=== PATIENT | male | born 1965 | race Caucasian/White ===

== ENCOUNTER 2020-08-14 12:41 | Emergency (ER) | payer MEDICAID, OTHER ==
[~2020-08-14] VITALS: Ht 182.9 cm; Wt 81.6 kg
[2020-08-14 12:49] VITALS: BP 138/80
[2020-08-14] MEDS ORDERED: IBUPROFEN 800 MG TAB PO ONE (13:45)
== END 2020-08-14 14:36 | disposition home or self-care (01) ==
LOC: EDBD 12:41 → ER 12:41
DX: M54.5 Low back pain (principal); G89.29 Other chronic pain
CPT/HCPCS: 81002

== ENCOUNTER 2020-09-13 14:21 | Emergency (ER) | payer MEDICAID ==
[~2020-09-13] VITALS: Ht 185.4 cm; Wt 81.6 kg
[2020-09-13] MEDS ORDERED: SODIUM CHLORIDE 0.9% 1,000 ML IV ONE (14:45)
[2020-09-13 14:57] LABS: Basophils # (auto) 0 10 ^3/uL (0-0.2); Basophils % (auto) 0.6 % (0.0-2.0); Eosinophils # (auto) 0.2 10 ^3/uL (0-0.8); Eosinophils % (auto) 2.2 % (0.0-7.0); Hemoglobin 13.3 g/dL (13.5-17.5); Lymphocytes # (auto) 2.8 10 ^3/uL (0.4-5.4); Lymphocytes % (auto) 35.6 % (10.0-50.0); Mean Corpuscular Hemoglobin 31.9 pg (28.0-32.0); Mean Corpuscular Hgb Conc. 35.1 g/dL (32.0-36.0); Mean Corpuscular Volume 90.9 fL (80.0-100.0); Monocytes # (auto) 0.5 10 ^3/uL (0-1.3); Monocytes % (auto) 6.8 % (0.0-12.0); Neutrophils # (auto) 4.3 10 ^3/uL (1.6-8.6); Neutrophils % (auto) 54.8 % (37.0-80.0); Nucleated Red Blood Cells % 0.1 %; Platelet Count (auto) 334 10^3/uL (140-450); Red Blood Cells 4.18 10^6/uL (4.5-5.90); Red Cell Distribution Width 14.5 % (11.8-14.3); White Blood Cell 7.8 10^3/uL (4.4-10.8)
[2020-09-13 15:15] LABS: Albumin 3.5 g/dL (3.4-5.0); Calcium 8.9 mg/dL (8.5-10.1)
[2020-09-13 15:18] LABS: Bilirubin, Total 0.7 mg/dL (0.2-1.0); Total Protein 7.5 g/dL (6.4-8.2)
[2020-09-13 15:53] VITALS: BP 122/74
== END 2020-09-13 16:00 | disposition home or self-care (01) ==
LOC: EDBD 14:21 → ER 14:21 → EDUNIT# 14:21 → ER 15:59
DX: F31.9 Bipolar disorder, unspecified (principal); Z76.0 Encounter for issue of repeat prescription
CPT/HCPCS: 36415; 80053; 85025; 93005

== ENCOUNTER 2020-09-24 11:14 | Emergency (ER) | payer MEDICAID ==
[~2020-09-24] VITALS: Ht 175.3 cm; Wt 81.6 kg
[2020-09-24 11:30] VITALS: BP 114/71
[2020-09-24] MEDS ORDERED: KETOROLAC TROMETH 60MG/2ML VIAL IM ONE (11:45)
== END 2020-09-24 12:41 | disposition left against medical advice (07) ==
LOC: ER 11:14 → EDBD 11:14 → ER 12:41
DX: S33.5XXA Sprain of ligaments of lumbar spine, initial encounter (principal); F17.210 Nicotine dependence, cigarettes, uncomplicated; X58.XXXA Exposure to other specified factors, initial encounter; Y93.89 Activity, other specified; Y92.89 Other specified places as the place of occurrence of the external cause; Y99.8 Other external cause status
CPT/HCPCS: J1885

== ENCOUNTER 2020-09-27 16:48 | Emergency (ER) | payer MEDICAID ==
[~2020-09-27] VITALS: Ht 185.4 cm; Wt 84.8 kg
[2020-09-27 17:13] VITALS: BP 125/63
[2020-09-27] MEDS ORDERED: ACETAMINOPHEN 325 MG TAB PO ONE (17:45)
[2020-09-27] MEDS ORDERED: cefTRIAXone SOD 1,000 MG VL IM ONE (17:45)
[2020-09-28] MEDS ORDERED: HAL5T PO (20:53)
[2020-09-28] MEDS ORDERED: BENZ1TAB2 PO (21:00)
== END 2020-09-27 18:00 | disposition home or self-care (01) ==
LOC: ER 16:48
DX: S90.822A Blister (nonthermal), left foot, initial encounter (principal); F17.210 Nicotine dependence, cigarettes, uncomplicated; F12.10 Cannabis abuse, uncomplicated; Z48.01 Encounter for change or removal of surgical wound dressing; X58.XXXA Exposure to other specified factors, initial encounter; Y93.89 Activity, other specified; Y92.89 Other specified places as the place of occurrence of the external cause; Y99.8 Other external cause status

== ENCOUNTER 2020-09-28 13:44 | Inpatient (IN) | payer MEDICAID ==
[~2020-09-28] VITALS: Ht 185.4 cm; Wt 82.5 kg
[2020-09-28 15:29] LABS: BUN/Creatinine Ratio 14.3; Calcium 8.7 mg/dL (8.5-10.1)
[2020-09-28 15:30] LABS: Basophils # (auto) 0.1 10 ^3/uL (0-0.2); Basophils % (auto) 0.6 % (0.0-2.0); Eosinophils # (auto) 0.2 10 ^3/uL (0-0.8); Hematocrit 39.1 % (41.0-53.0); Hemoglobin 13.4 g/dL (13.5-17.5); Lymphocytes # (auto) 1.8 10 ^3/uL (0.4-5.4); Lymphocytes % (auto) 19.5 % (10.0-50.0); Mean Corpuscular Hgb Conc. 34.2 g/dL (32.0-36.0); Mean Corpuscular Volume 90.7 fL (80.0-100.0); Monocytes # (auto) 0.7 10 ^3/uL (0-1.3); Monocytes % (auto) 7.4 % (0.0-12.0); Neutrophils # (auto) 6.5 10 ^3/uL (1.6-8.6); Neutrophils % (auto) 70.5 % (37.0-80.0); Red Blood Cells 4.31 10^6/uL (4.5-5.90); White Blood Cell 9.2 10^3/uL (4.4-10.8)
[2020-09-28] MEDS ORDERED: CLINDAMYCIN 900MG IV 50 ML IV ONE (15:30)
[2020-09-28] MEDS ORDERED: KETOROLAC TROMETH 30 MG/ML 1ML VIAL IV ONE (15:30)
[2020-09-28] MEDS ORDERED: SODIUM CHLORIDE 0.9% 1,000 ML IV ONE (15:30)
[2020-09-28 17:29] LABS: Alcohol, Urine < 3.0 mg/dL (0-10); Amphetamine Screen, Urine NEGATIVE (NEGATIVE); Barbiturate Scree,Urine NEGATIVE (NEGATIVE); Benzodiazephine Screen, Urine NEGATIVE (NEGATIVE); Cannabinoid Screen, Urine POSITIVE (NEGATIVE); Cocaine Screen, Urine NEGATIVE (NEGATIVE); Opiate Scree,Urine NEGATIVE (NEGATIVE); Phencyclidine Screen, Urine NEGATIVE (NEGATIVE)
[2020-09-28] MEDS ORDERED: TETANUS-DIPTH-ACEL PERTUSSIS 0.5ML SYR Tdap IM ONE (19:00)
[2020-09-28] MEDS ORDERED: ACETAMINOPHEN 500 MG TAB PO PRN (19:00)
[2020-09-28] MEDS ORDERED: MORPHINE SULFATE INJECTION 2 MG/ML SYRG IV PRN ×2 (19:00)
[2020-09-28] MEDS ORDERED: hydrALAZINE HCL 20 MG/ML VL IV PRN (19:00)
[2020-09-28] MEDS ORDERED: DOCUSATE CALCIUM 240 MG CAP PO PRN (19:00)
[2020-09-28] MEDS ORDERED: NITROGLYCERIN 0.4 MG SL TAB SL PRN (19:00)
[2020-09-28] MEDS ORDERED: ONDANSETRON HCL 4 MG/2 ML VIAL IV PRN (19:00)
[2020-09-28] MEDS ORDERED: HAL5T PO (20:53)
[2020-09-28 21:00] VITALS: BP 110/59
[2020-09-28] MEDS ORDERED: BENZ1TAB2 PO (21:00)
[2020-09-28 22:00] VITALS: BP 105/57
[2020-09-28] MEDS: LORazepam 0.5 MG TAB PO PRN (23:11)
[2020-09-29] MEDS: PIPERACILLIN-TAZOB 3.375GM 100 ML IV SCH ×2 (01:35→06:57)
[2020-09-29 05:00] VITALS: BP 100/59
[2020-09-29 06:14] LABS: Basophils # (auto) 0 10 ^3/uL (0-0.2); Basophils % (auto) 0.7 % (0.0-2.0); Eosinophils # (auto) 0.2 10 ^3/uL (0-0.8); Eosinophils % (auto) 4.1 % (0.0-7.0); Hematocrit 34.5 % (41.0-53.0); Lymphocytes # (auto) 2.7 10 ^3/uL (0.4-5.4); Lymphocytes % (auto) 49.1 % (10.0-50.0); Mean Corpuscular Hemoglobin 31.5 pg (28.0-32.0); Mean Corpuscular Hgb Conc. 34.8 g/dL (32.0-36.0); Mean Corpuscular Volume 90.4 fL (80.0-100.0); Monocytes # (auto) 0.4 10 ^3/uL (0-1.3); Monocytes % (auto) 6.9 % (0.0-12.0); Neutrophils # (auto) 2.2 10 ^3/uL (1.6-8.6); Neutrophils % (auto) 39.2 % (37.0-80.0); Red Blood Cells 3.81 10^6/uL (4.5-5.90); Red Cell Distribution Width 14.3 % (11.8-14.3); White Blood Cell 5.5 10^3/uL (4.4-10.8)
[2020-09-29 06:32] LABS: Albumin 2.6 g/dL (3.4-5.0); Calcium 7.8 mg/dL (8.5-10.1); Potassium 3.5 mmol/L (3.5-5.1)
[2020-09-29 06:34] LABS: BUN/Creatinine Ratio 17.3
[2020-09-29 06:37] LABS: Bilirubin, Total 0.2 mg/dL (0.2-1.0); Total Protein 5.5 g/dL (6.4-8.2)
[2020-09-29 09:00] VITALS: BP 96/63
[2020-09-29] MEDS: PANTOPRAZOLE 40 MG TAB PO SCH (10:00)
[2020-09-29] MEDS: ENOXAPARIN SOD 40 MG/0.4 ML SYRINGE SC SCH (10:00)
[2020-09-29] MEDS ORDERED: IBUPROFEN 800 MG TAB PO PRN (11:15)
[2020-09-29 13:00] VITALS: BP 111/72
[2020-09-29 17:00] VITALS: BP 128/73
[2020-09-29 21:43] VITALS: BP 134/78
[2020-09-30 09:00] VITALS: BP 98/62
[2020-09-30] MEDS: ENOXAPARIN SOD 40 MG/0.4 ML SYRINGE SC SCH (10:00)
[2020-09-30] MEDS: PANTOPRAZOLE 40 MG TAB PO SCH (10:11)
[2020-09-30] MEDS: HALOPERIDOL 5 MG TAB PO SCH (10:11)
[2020-09-30] MEDS: cefTRIAXone 1GM/50ML D5W 50 ML IV SCH (10:13)
[2020-09-30 13:35] VITALS: BP 130/69
[2020-09-30 16:58] VITALS: BP 122/66
[2020-09-30 21:46] VITALS: BP 130/80
[2020-10-01 05:05] VITALS: BP 130/75
[2020-10-01 09:00] VITALS: BP 102/74
[2020-10-01] MEDS: cefTRIAXone 1GM/50ML D5W 50 ML IV SCH (09:35)
[2020-10-01] MEDS: HALOPERIDOL 5 MG TAB PO SCH (09:39)
[2020-10-01] MEDS: ENOXAPARIN SOD 40 MG/0.4 ML SYRINGE SC SCH (09:40)
[2020-10-01] MEDS: PANTOPRAZOLE 40 MG TAB PO SCH (09:40)
[2020-10-01 12:49] VITALS: BP 122/75
[2020-10-01] MEDS: CLINDAMYCIN 600MG IV 50 ML IV SCH ×2 (14:00→21:05)
[2020-10-01 22:00] VITALS: BP 145/86
[2020-10-02] MEDS: CLINDAMYCIN 600MG IV 50 ML IV SCH ×5 (05:08→22:00)
[2020-10-02 05:35] VITALS: BP 108/64
[2020-10-02] MEDS: cefTRIAXone 1GM/50ML D5W 50 ML IV SCH ×2 (09:00→11:12)
[2020-10-02 09:19] VITALS: BP 110/68
[2020-10-02] MEDS: HALOPERIDOL 5 MG TAB PO SCH (10:00)
[2020-10-02] MEDS: PANTOPRAZOLE 40 MG TAB PO SCH (10:00)
[2020-10-02] MEDS: ENOXAPARIN SOD 40 MG/0.4 ML SYRINGE SC SCH (10:00)
[2020-10-02 22:00] VITALS: BP 137/100
[2020-10-03] MEDS: CLINDAMYCIN 600MG IV 50 ML IV SCH ×3 (06:00→21:21)
[2020-10-03] MEDS: ENOXAPARIN SOD 40 MG/0.4 ML SYRINGE SC SCH (11:00)
[2020-10-03] MEDS: cefTRIAXone 1GM/50ML D5W 50 ML IV SCH (11:01)
[2020-10-03] MEDS: PANTOPRAZOLE 40 MG TAB PO SCH (11:01)
[2020-10-03] MEDS: HALOPERIDOL 5 MG TAB PO SCH (11:01)
[2020-10-03 13:00] VITALS: BP 130/79
[2020-10-03 22:00] VITALS: BP 112/86
[2020-10-04 05:27] VITALS: BP 115/72
[2020-10-04] MEDS: CLINDAMYCIN 600MG IV 50 ML IV SCH ×3 (06:00→22:00)
[2020-10-04] MEDS: HALOPERIDOL 5 MG TAB PO SCH (09:25)
[2020-10-04 09:26] VITALS: BP 115/73
[2020-10-04] MEDS: ENOXAPARIN SOD 40 MG/0.4 ML SYRINGE SC SCH (09:26)
[2020-10-04] MEDS: PANTOPRAZOLE 40 MG TAB PO SCH (09:26)
[2020-10-04] MEDS ORDERED: BENZTROPINE MESY 0.5 MG TAB PO ONE (12:30)
[2020-10-04] MEDS: cefTRIAXone 1GM/50ML D5W 50 ML IV SCH (12:30)
[2020-10-04 14:42] VITALS: BP 121/77
[2020-10-04 16:43] VITALS: BP 113/68
[2020-10-04 22:00] VITALS: BP 124/81
[2020-10-04] MEDS: BENZTROPINE MESY 0.5 MG TAB PO SCH (22:00)
[2020-10-05 05:00] VITALS: BP 101/60
[2020-10-05] MEDS: CLINDAMYCIN 600MG IV 50 ML IV SCH ×3 (05:55→22:17)
[2020-10-05 08:59] VITALS: BP 136/82
[2020-10-05] MEDS: cefTRIAXone 1GM/50ML D5W 50 ML IV SCH (09:00)
[2020-10-05] MEDS: ENOXAPARIN SOD 40 MG/0.4 ML SYRINGE SC SCH (10:00)
[2020-10-05] MEDS: PANTOPRAZOLE 40 MG TAB PO SCH (10:00)
[2020-10-05] MEDS: HALOPERIDOL 5 MG TAB PO SCH (10:11)
[2020-10-05] MEDS: BENZTROPINE MESY 0.5 MG TAB PO SCH ×2 (10:11→22:18)
[2020-10-05 12:51] VITALS: BP 142/79
[2020-10-05 17:00] VITALS: BP 140/81
[2020-10-05 17:07] VITALS: BP 142/79
[2020-10-05 22:00] VITALS: BP 165/97
[2020-10-06 06:20] VITALS: BP 115/64
[2020-10-06] MEDS: CLINDAMYCIN 600MG IV 50 ML IV SCH ×3 (06:31→22:56)
[2020-10-06 09:00] VITALS: BP 123/96
[2020-10-06] MEDS: PANTOPRAZOLE 40 MG TAB PO SCH (09:01)
[2020-10-06] MEDS: cefTRIAXone 1GM/50ML D5W 50 ML IV SCH (09:01)
[2020-10-06] MEDS: BENZTROPINE MESY 0.5 MG TAB PO SCH ×2 (09:01→22:56)
[2020-10-06] MEDS: HALOPERIDOL 5 MG TAB PO SCH ×2 (09:02→22:56)
[2020-10-06] MEDS: ENOXAPARIN SOD 40 MG/0.4 ML SYRINGE SC SCH ×2 (09:02→10:00)
[2020-10-06 13:00] VITALS: BP 127/75
[2020-10-06] MEDS ORDERED: HALOPERIDOL 5 MG TAB PO ONE (14:00)
[2020-10-06 17:00] VITALS: BP 135/72
[2020-10-07] MEDS: CLINDAMYCIN 600MG IV 50 ML IV SCH (05:41)
[2020-10-07 09:00] VITALS: BP 107/64
[2020-10-07] MEDS: cefTRIAXone 1GM/50ML D5W 50 ML IV SCH (09:30)
[2020-10-07] MEDS: HALOPERIDOL 5 MG TAB PO SCH ×2 (09:31→20:56)
[2020-10-07] MEDS: ENOXAPARIN SOD 40 MG/0.4 ML SYRINGE SC SCH (09:31)
[2020-10-07] MEDS: BENZTROPINE MESY 0.5 MG TAB PO SCH ×2 (09:31→20:56)
[2020-10-07] MEDS: PANTOPRAZOLE 40 MG TAB PO SCH (09:31)
[2020-10-07] MEDS: LORazepam 0.5 MG TAB PO PRN ×2 (12:30→20:57)
[2020-10-07 13:00] VITALS: BP 140/84
[2020-10-07] MEDS: CLINDAMYCIN HCL 150 MG CAP PO SCH ×2 (14:00→20:56)
[2020-10-07 17:00] VITALS: BP 144/77
[2020-10-07 22:00] VITALS: BP 138/95
[2020-10-08 05:00] VITALS: BP 128/70
[2020-10-08] MEDS: CLINDAMYCIN HCL 150 MG CAP PO SCH ×3 (05:10→20:47)
[2020-10-08 09:00] VITALS: BP 125/75
[2020-10-08] MEDS: ENOXAPARIN SOD 40 MG/0.4 ML SYRINGE SC SCH (10:00)
[2020-10-08] MEDS: HALOPERIDOL 5 MG TAB PO SCH ×2 (10:31→20:47)
[2020-10-08] MEDS: BENZTROPINE MESY 0.5 MG TAB PO SCH ×2 (10:31→20:47)
[2020-10-08 13:00] VITALS: BP 114/70
[2020-10-08 17:00] VITALS: BP 129/86
[2020-10-08] MEDS: LORazepam 0.5 MG TAB PO PRN (20:51)
[2020-10-08 22:00] VITALS: BP 136/83
[2020-10-09 05:00] VITALS: BP 108/66
[2020-10-09] MEDS: CLINDAMYCIN HCL 150 MG CAP PO SCH ×3 (05:26→21:58)
[2020-10-09] MEDS: ENOXAPARIN SOD 40 MG/0.4 ML SYRINGE SC SCH (09:58)
[2020-10-09] MEDS: HALOPERIDOL 5 MG TAB PO SCH ×2 (09:58→21:58)
[2020-10-09] MEDS: BENZTROPINE MESY 0.5 MG TAB PO SCH ×2 (09:58→21:57)
[2020-10-09] MEDS: LORazepam 0.5 MG TAB PO PRN (21:58)
[2020-10-09 22:00] VITALS: BP 114/83
[2020-10-10] MEDS ORDERED: diphenhdrAMINE HCL 25 MG CAP PO ONE (00:30)
[2020-10-10] MEDS ORDERED: OXcarbazepine 300 MG TAB PO ONE (00:30)
[2020-10-10] MEDS ORDERED: HALOPERIDOL 5 MG TAB PO ONE (00:30)
[2020-10-10] MEDS ORDERED: BENZTROPINE MESY 0.5 MG TAB PO ONE (00:30)
[2020-10-10 05:25] VITALS: BP 111/70
[2020-10-10] MEDS: CLINDAMYCIN HCL 150 MG CAP PO SCH ×3 (05:55→21:44)
[2020-10-10 09:00] VITALS: BP 133/73
[2020-10-10] MEDS: ENOXAPARIN SOD 40 MG/0.4 ML SYRINGE SC SCH (10:00)
[2020-10-10] MEDS: BENZTROPINE MESY 0.5 MG TAB PO SCH ×3 (10:07→21:46)
[2020-10-10] MEDS: HALOPERIDOL 5 MG TAB PO SCH ×2 (10:07→21:45)
[2020-10-10 13:00] VITALS: BP 153/98
[2020-10-10 16:50] VITALS: BP 130/82
[2020-10-10] MEDS: OXcarbazepine 300 MG TAB PO SCH (21:45)
[2020-10-10] MEDS: diphenhdrAMINE HCL 25 MG CAP PO PRN (21:46)
[2020-10-10] MEDS ORDERED: LORazepam 0.5 MG TAB PO PRN (22:00)
[2020-10-10] MEDS ORDERED: HALOPERIDOL 1 MG TAB PO SCH (22:00)
[2020-10-11 00:15] VITALS: BP 133/72
[2020-10-11 05:00] VITALS: BP 148/67
[2020-10-11] MEDS: CLINDAMYCIN HCL 150 MG CAP PO SCH ×3 (06:08→21:36)
[2020-10-11] MEDS: HALOPERIDOL 5 MG TAB PO SCH ×2 (06:08→21:37)
[2020-10-11 08:42] VITALS: BP 112/88
[2020-10-11] MEDS: OXcarbazepine 300 MG TAB PO SCH ×2 (10:17→21:37)
[2020-10-11] MEDS: BENZTROPINE MESY 0.5 MG TAB PO SCH ×2 (11:58→21:37)
[2020-10-11 13:00] VITALS: BP 157/82
[2020-10-11] MEDS: AMOXICILLIN/CLAVULAN 500 MG TAB PO SCH ×2 (15:42→21:36)
[2020-10-11 16:56] VITALS: BP 110/70
[2020-10-11] MEDS: diphenhdrAMINE HCL 25 MG CAP PO PRN (21:58)
[2020-10-11 22:13] VITALS: BP 124/94
[2020-10-12 05:00] VITALS: BP 106/59
[2020-10-12] MEDS: AMOXICILLIN/CLAVULAN 500 MG TAB PO SCH ×3 (05:25→21:25)
[2020-10-12] MEDS: CLINDAMYCIN HCL 150 MG CAP PO SCH ×3 (05:25→21:25)
[2020-10-12] MEDS: HALOPERIDOL 5 MG TAB PO SCH ×2 (05:26→21:25)
[2020-10-12 08:12] LABS: Basophils # (auto) 0.1 10 ^3/uL (0-0.2); Basophils % (auto) 0.8 % (0.0-2.0); Eosinophils # (auto) 0.3 10 ^3/uL (0-0.8); Eosinophils % (auto) 3.8 % (0.0-7.0); Hematocrit 40.6 % (41.0-53.0); Hemoglobin 13.9 g/dL (13.5-17.5); Lymphocytes % (auto) 41.9 % (10.0-50.0); Mean Corpuscular Hemoglobin 31.1 pg (28.0-32.0); Mean Corpuscular Hgb Conc. 34.3 g/dL (32.0-36.0); Mean Corpuscular Volume 90.7 fL (80.0-100.0); Monocytes # (auto) 0.5 10 ^3/uL (0-1.3); Monocytes % (auto) 6.9 % (0.0-12.0); Neutrophils # (auto) 3.3 10 ^3/uL (1.6-8.6); Neutrophils % (auto) 46.6 % (37.0-80.0); Nucleated Red Blood Cells % 0.1 %; Red Blood Cells 4.48 10^6/uL (4.5-5.90); Red Cell Distribution Width 13.9 % (11.8-14.3); White Blood Cell 7.2 10^3/uL (4.4-10.8)
[2020-10-12 08:26] LABS: Calcium 8.3 mg/dL (8.5-10.1); Potassium 4.2 mmol/L (3.5-5.1)
[2020-10-12 08:28] LABS: BUN/Creatinine Ratio 28.8
[2020-10-12 09:00] VITALS: BP 124/70
[2020-10-12] MEDS: OXcarbazepine 300 MG TAB PO SCH ×2 (10:18→21:25)
[2020-10-12] MEDS: BENZTROPINE MESY 0.5 MG TAB PO SCH ×2 (11:45→21:25)
[2020-10-12 13:00] VITALS: BP 125/77
[2020-10-12 17:14] VITALS: BP 128/79
[2020-10-12 22:00] VITALS: BP 138/77
[2020-10-13 05:18] VITALS: BP 129/92
[2020-10-13] MEDS: CLINDAMYCIN HCL 150 MG CAP PO SCH (05:47)
[2020-10-13] MEDS: HALOPERIDOL 5 MG TAB PO SCH ×2 (05:47→21:03)
[2020-10-13] MEDS: AMOXICILLIN/CLAVULAN 500 MG TAB PO SCH ×2 (05:47→21:03)
[2020-10-13 09:00] VITALS: BP 124/78
[2020-10-13] MEDS: OXcarbazepine 300 MG TAB PO SCH ×2 (11:01→21:04)
[2020-10-13] MEDS: BENZTROPINE MESY 0.5 MG TAB PO SCH ×2 (11:01→23:28)
[2020-10-13 13:00] VITALS: BP 123/77
[2020-10-13 17:23] VITALS: BP 131/78
[2020-10-13 22:00] VITALS: BP 143/102
[2020-10-14 05:00] VITALS: BP 121/86
[2020-10-14] MEDS: AMOXICILLIN/CLAVULAN 500 MG TAB PO SCH ×3 (06:19→21:57)
[2020-10-14] MEDS: HALOPERIDOL 5 MG TAB PO SCH ×2 (06:19→21:57)
[2020-10-14 09:51] VITALS: BP 113/77
[2020-10-14] MEDS: OXcarbazepine 300 MG TAB PO SCH ×2 (10:37→21:57)
[2020-10-14 13:00] VITALS: BP 129/71
[2020-10-14] MEDS: BENZTROPINE MESY 0.5 MG TAB PO SCH ×2 (14:15→23:28)
[2020-10-14 17:00] VITALS: BP 140/89
[2020-10-14 22:00] VITALS: BP 138/109
[2020-10-15 05:00] VITALS: BP 117/71
[2020-10-15] MEDS: AMOXICILLIN/CLAVULAN 500 MG TAB PO SCH ×3 (06:09→22:15)
[2020-10-15] MEDS: HALOPERIDOL 5 MG TAB PO SCH ×2 (06:09→22:15)
[2020-10-15 09:00] VITALS: BP 107/71
[2020-10-15] MEDS: OXcarbazepine 300 MG TAB PO SCH ×2 (09:57→22:15)
[2020-10-15] MEDS: BENZTROPINE MESY 0.5 MG TAB PO SCH ×2 (12:11→23:16)
[2020-10-15 13:00] VITALS: BP 130/67
[2020-10-15 17:00] VITALS: BP 139/69
[2020-10-15 22:00] VITALS: BP 165/83
[2020-10-16 05:00] VITALS: BP 111/73
[2020-10-16] MEDS: HALOPERIDOL 5 MG TAB PO SCH ×2 (06:22→21:04)
[2020-10-16] MEDS: AMOXICILLIN/CLAVULAN 500 MG TAB PO SCH ×3 (06:22→21:04)
[2020-10-16 09:00] VITALS: BP 108/81
[2020-10-16] MEDS: OXcarbazepine 300 MG TAB PO SCH ×2 (11:09→21:04)
[2020-10-16] MEDS: BENZTROPINE MESY 0.5 MG TAB PO SCH ×2 (11:50→21:04)
[2020-10-16 13:00] VITALS: BP 126/83
[2020-10-16 17:00] VITALS: BP 116/81
[2020-10-16 22:57] VITALS: BP 131/97
[2020-10-17] MEDS: AMOXICILLIN/CLAVULAN 500 MG TAB PO SCH ×3 (05:27→22:17)
[2020-10-17] MEDS: HALOPERIDOL 5 MG TAB PO SCH ×2 (05:27→21:22)
[2020-10-17 05:45] VITALS: BP 125/70
[2020-10-17 09:00] VITALS: BP 150/77
[2020-10-17] MEDS: OXcarbazepine 300 MG TAB PO SCH ×2 (10:47→21:22)
[2020-10-17] MEDS: BENZTROPINE MESY 0.5 MG TAB PO SCH ×2 (10:48→21:22)
[2020-10-17 13:00] VITALS: BP 129/63
[2020-10-17 17:29] VITALS: BP 112/74
[2020-10-17 22:20] VITALS: BP 113/48
[2020-10-18 05:45] VITALS: BP 135/83
[2020-10-18] MEDS: AMOXICILLIN/CLAVULAN 500 MG TAB PO SCH (06:23)
[2020-10-18] MEDS: HALOPERIDOL 5 MG TAB PO SCH (06:23)
[2020-10-18 09:05] VITALS: BP 111/65
[2020-10-18] MEDS: OXcarbazepine 300 MG TAB PO SCH (10:41)
== END 2020-10-18 13:25 | disposition home or self-care (01) | DRG 383 ==
LOC: ER 13:44 → WEST WING 18:47
PROVIDERS: ADMIT Family Medicine; ATTEND Internal Medicine Nephrology
DX: L03.116 Cellulitis of left lower limb (principal); E44.0 Moderate protein-calorie malnutrition; L97.529 Non-pressure chronic ulcer of other part of left foot with unspecified severity; F25.0 Schizoaffective disorder, bipolar type; R45.851 Suicidal ideations; M54.9 Dorsalgia, unspecified; R26.2 Difficulty in walking, not elsewhere classified; Z20.822 Contact with and (suspected) exposure to COVID-19; G24.01 Drug induced subacute dyskinesia; Z68.23 Body mass index [BMI] 23.0-23.9, adult; F12.10 Cannabis abuse, uncomplicated; F17.210 Nicotine dependence, cigarettes, uncomplicated; F41.9 Anxiety disorder, unspecified; G89.29 Other chronic pain; Z80.9 Family history of malignant neoplasm, unspecified; Z83.3 Family history of diabetes mellitus; Z91.14 Patient's other noncompliance with medication regimen; Z91.19 Patient's noncompliance with other medical treatment and regimen
CPT/HCPCS: 36415; 72100; 73630; 73700; 80048; 80053; 80307; 82607; 85025; 85049; 86141; 87040; 87205; 87426; 90715; 93925; 96365; 96366; 96375; G0378; J0696; J1885; J2543; J3490